=== PATIENT | male | born 1950 | race Two or more races ===

== ENCOUNTER 2024-11-18 17:16 | Inpatient (IN) | payer OTHER ==
[~2024-11-18] VITALS: Ht 182.9 cm; Wt 115.7 kg
[~2024-11-18 17:16] MED LIST: CARDIZEM120 MG; MUCINEX DM1 TAB.SR .; PLAVIX75 MG; PREDNISONE10 MG
[2024-11-18] MEDS ORDERED: ELIQUIS2.5 MG (17:26)
[2024-11-18] MEDS ORDERED: LASIX20 MG (17:26)
--- NOTE | 2024-11-18 17:27 | NUR ---
SE RECIBE PTE LETARGICO EN AMBULANCIA ACOMPANADO DE FAMILIAR LA CUAL REFIERE TRAER A PTE POR DIFICULTAD RESPIRATORIA Y RETENCION DE LIQUIDOS DESDE HACE 3 ARCHIBALD. SE MIDEN S/V A PTE Y SE REALIZA EKG. PTE SE OBSERVA CON EDEMA EN EXTREMIDADES INFERIORES. PTE CON CN A 3 LTS COLOCADA Y H/L EN BRAZO LT MENG DE EDEMA COLOCADO POR PERSONAL PARAMEDICO. PTE SE UBICA EN UBICA EN UNIDAD DE CHEST PAIN.
--- NOTE | 2024-11-18 18:17 | NUR ---
PTE ALERTA Y ACTIVO EN CAMA BAJA Y BARANDAS ELEVADAS POR SEGURIDAD. SE CANALIZA EN BRAZO DERECHO CON 2 H/L, SE LE ERIK MUESTRAS DE PAMELA CRISTINA PARTE DE PROTOCOLO DE DOLOR DE PECHO. SE CONECTA PTE A MONITOR CARDIACO Y OXYMETRIA DE PULSO. ABDOMEN RETRAIBLE AL TACTO. PTE ORINANDO ESPONTANEO. EXTREMIDADES INFERIOIRES LIBRES DE SAMRA AY ERITEMA.
[2024-11-18 18:48] LABS: ALBUMIN 3.7 gm/dL (3.4-5.0); BILIRUBIN TOTAL 0.68 mg/dL (0.3-1.2); CALCIUM 8.8 mg/dL (8.5-10.1); CREATININE SERUM 1.02 mg/dL (0.70-1.30); GFR 71.01; GLOBULINA 3.4 G/DL (2.4-3.5); POTASSIUM 5.07 mEq/L (3.5-5.1); TOTAL PROTEIN 7.1 gm/dL (6.4-8.2)
[2024-11-18 18:57] LABS: HEMATOCRIT 37.7 % (39.0-48.0); HEMOGLOBIN 11.5 g/dL (13-16.00); MEAN CELL VOLUME 80.8 fL (80.0-100.00); MEAN CORPUSCULAR HEMOGLOBIN 24.6 pg (27.00-32.0); MEAN CORPUSCULAR HGB CONC 30.5 g/dl (32.0-36.0); PLATELET COUNT 188 K/uL (150-450); RED BLOOD COUNT 4.67 M/uL (4.00-6.00)
[2024-11-18 18:57] LABS: BILIRUBIN,CONJUGATED 0.2 mg/dL (0.0-0.2); BILIRUBIN,UNCONJUGATED 0.48 mg/dL (0.0-0.6)
[2024-11-18 18:58] LABS: RED CELL DISTRIBUTION WIDTH 19.6 % (11.5-14.5)
[2024-11-18 19:09] LABS: ABG PO2 115.5 mmHg (80-100); BASE EXCESS 4.6 mmol/l; BICARBONATE 36.9 mmol/l (23-25); SaO2 97.1 %
[2024-11-18 19:10] LABS: ABG PH 7.185 (7.35-7.45); allen test SATISFACTORY; o2 36 %; puncture site RADIAL LEFT
[2024-11-18] MEDS ORDERED: FUROsemide 20 MG/2 ML VIAL IV SCH (20:58)
[2024-11-18] MEDS ORDERED: NITROGLYCERIN IN 5 % DEXTROSE 250 ML IV SCH (21:00)
[2024-11-18] MEDS ORDERED: ACETAMINOPHEN 500 MG GEL..CAP PO PRN (21:00)
[2024-11-18] MEDS ORDERED: ENOXAPARIN SODIUM 100 MG/ML SYRINGE SUBCUTANEO SCH (21:00)
[2024-11-18] MEDS ORDERED: AMIODARONE HCL 50 MG/ML AMPUL IV ONE ×2 (21:00→22:07)
[2024-11-18] MEDS ORDERED: FUROsemide 20 MG/2 ML VIAL ONE (22:08)
[2024-11-18] MEDS ORDERED: AMIODARONE IN DEXTROSE,ISO-OSM 360 MG/200 ML IV.SOLN IV ONE (22:08)
[2024-11-18] MEDS ORDERED: NITROGLYCERIN IN 5 % DEXTROSE 50 MG/250 ML BOTTLE IV ONE (22:08)
[2024-11-18 22:13] LABS: ABG PH 7.196 (7.35-7.45); ABG PO2 86.4 mmHg (80-100); BASE EXCESS 4.4 mmol/l; BICARBONATE 36.3 mmol/l (23-25); SaO2 93.7 %; Tco2 39.3 mmol/l; allen test SATISFACTORY; o2 35 %; puncture site RADIAL LEFT
[2024-11-18] MEDS ORDERED: MIDAZOLAM HCL 50 MG in 0.9 % SODIUM CHLORIDE 50 ML IV SCH (22:30)
[2024-11-18 22:51] LABS: ABG PH 7.435 (7.35-7.45); BASE EXCESS 6.3 mmol/l; SaO2 99.3 %
[2024-11-18 22:52] LABS: ABG pCO2 48.4 mmHg (35-45); BICARBONATE 31.8 mmol/l (23-25); Tco2 33.3 mmol/l; allen test SATISFACTORY; o2 50 %; puncture site RADIAL LEFT
[2024-11-18 23:16] LABS: URINE APPEARANCE Clear; URINE BILIRRUBIN Negative (NEGATIVE); URINE BLOOD Negative; URINE COLOR Yellow; URINE GLUCOSE Negative (NEGATIVE); URINE KETONE Negative (NEGATIVE); URINE LEUKOCYTE Negative; URINE NITRATE Negative; URINE PROTEIN 30 (NEGATIVE)
[2024-11-18 23:20] LABS: URINE BACTERIA 23.2 uL (0.0-1933); URINE CAST 1.76 uL (0.0-1.40); URINE EPITHELIAL CELLS 9.3 uL (0.0-38.8); URINE RBC 4.2 uL (0.0-20.8); URINE WBC 13.2 uL (0.0-23.2)
[2024-11-19] VITALS (16 sets, daily range): BP systolic 113–177; BP diastolic 58–92; O2SAT 94–100
[2024-11-19] MEDS ORDERED: IPRATROPIUM BROMIDE 0.5 MG/2.5 ML AMPUL.NEB IH SCH (01:00)
[2024-11-19] MEDS ORDERED: NITROGLYCERIN IN 5 % DEXTROSE 250 ML IV SCH (07:15)
[2024-11-19 07:36] LABS: D DIMER 1.16 MG/L; PARTIAL THROMBOPLASTIN TIME 22.3 SECONDS (22.0-34.0)
[2024-11-19 07:43] LABS: INR 1.6
[2024-11-19 08:23] LABS: CHOL HDL RATIO 2.8 (0-5.0); TSH 0.579 uIU/mL (0.358-3.74)
[2024-11-19 08:25] LABS: PROTHROMBIN TIME 16.8 SECONDS (9.0-11.5)
[2024-11-19] MEDS ORDERED: FAMOTIDINE/PF 20 MG in 0.9 % SODIUM CHLORIDE 8 ML IV PUSH SCH (09:00)
[2024-11-19] MEDS ORDERED: PANTOPRAZOLE SODIUM 40 MG/VIAL VIAL IV PUSH SCH (11:19)
[2024-11-19] MEDS ORDERED: 0.9 % SODIUM CHLORIDE 500 ML IV ONE (11:30)
[2024-11-19] MEDS ORDERED: POLYVINYL ALCOHOL 15 ML DROPS OP SCH (12:36)
[2024-11-19] MEDS ORDERED: CHLORHEXIDINE GLUCONATE 15ML BRUSH KIT MM SCH (12:36)
[2024-11-19] MEDS ORDERED: PROPOFOL 100 ML IV SCH (12:45)
[2024-11-19] MEDS ORDERED: LIDOCAINE HCL 2% JELLY 6 ML SYRINGE MM ONE (13:50)
[2024-11-19 16:19] LABS: ABG PH 7.555 (7.35-7.45); ABG PO2 62.4 mmHg (80-100); ABG pCO2 37.7 mmHg (35-45); BASE EXCESS 9.7 mmol/l; BICARBONATE 32.6 mmol/l (23-25); SaO2 95.1 %; Tco2 33.7 mmol/l
[2024-11-19 16:21] LABS: allen test SATISFACTORY; o2 50 %; puncture site RADIAL RIGHT
[2024-11-19] MEDS ORDERED: FUROsemide 20 MG/2 ML VIAL IV SCH (21:00)
[2024-11-20] VITALS (12 sets, daily range): BP systolic 96–141; BP diastolic 48–95; O2SAT 96–100
[2024-11-20] MEDS ORDERED: FUROsemide 20 MG/2 ML VIAL IV SCH (09:00)
[2024-11-20] MEDS ORDERED: CARVEDILOL 3.125 MG TABLET PO SCH (09:00)
[2024-11-20] MEDS ORDERED: BUDESONIDE 0.5 MG/2 ML AMPUL.NEB IH SCH (09:00)
[2024-11-20] MEDS ORDERED: APIXABAN 5 MG TABLET PO SCH (09:00)
[2024-11-20] MEDS ORDERED: PANTOPRAZOLE SODIUM 40 MG/VIAL VIAL IV PUSH SCH (09:00)
[2024-11-20 10:34] LABS: HEMATOCRIT 33.6 % (39.0-48.0); HEMOGLOBIN 10.7 g/dL (13-16.00); MEAN CORPUSCULAR HEMOGLOBIN 24.3 pg (27.00-32.0); MEAN CORPUSCULAR HGB CONC 31.9 g/dl (32.0-36.0); RED BLOOD COUNT 4.42 M/uL (4.00-6.00); RED CELL DISTRIBUTION WIDTH 19.5 % (11.5-14.5)
[2024-11-20 11:00] LABS: ALBUMIN 2.9 gm/dL (3.4-5.0); BILIRUBIN TOTAL 1.33 mg/dL (0.3-1.2); CALCIUM 8.2 mg/dL (8.5-10.1); CREATININE SERUM 0.98 mg/dL (0.70-1.30); GFR 74.36; GLOBULINA 2.6 G/DL (2.4-3.5); POTASSIUM 3.41 mEq/L (3.5-5.1); TOTAL PROTEIN 5.5 gm/dL (6.4-8.2)
[2024-11-20] MEDS ORDERED: CHLORHEXIDINE GLUCONATE 120 ML BOTTLE TOP ONE (11:18)
[2024-11-20 12:18] LABS: PLATELET COUNT 53 K/uL (150-450)
[2024-11-20 15:19] LABS: ABG PH 7.494 (7.35-7.45); ABG PO2 150.6 mmHg (80-100); ABG pCO2 44.8 mmHg (35-45); BASE EXCESS 9.2 mmol/l; SaO2 99.5 %
[2024-11-20 15:20] LABS: BICARBONATE 33.7 mmol/l (23-25)
[2024-11-20 15:23] LABS: allen test SATISFACTORY; o2 35 %; puncture site RADIAL RIGHT
[2024-11-21 03:59] VITALS: BP 121/59; O2SAT 97
[2024-11-21 06:57] VITALS: BP 132/72; O2SAT 97
[2024-11-21 12:00] VITALS: BP 124/67; O2SAT 100
[2024-11-21 12:56] LABS: CALCIUM 8.2 mg/dL (8.5-10.1); CREATININE SERUM 0.97 mg/dL (0.70-1.30); GFR 75.25; POTASSIUM 3.94 mEq/L (3.5-5.1); PROSTATIC SPECIFIC ANTIGEN 2.26 NG/ML (0.010-4.00)
[2024-11-21] MEDS ORDERED: RACEPINEPHRINE HCL 0.5 ML AMPUL IH ONE ×2 (14:45→15:00)
[2024-11-21 15:19] VITALS: BP 134/75; O2SAT 100
[2024-11-21 16:01] LABS: ABG PH 7.528 (7.35-7.45); ABG PO2 80.9 mmHg (80-100); ABG pCO2 38.3 mmHg (35-45)
[2024-11-21 16:02] LABS: BICARBONATE 31.2 mmol/l (23-25); SaO2 97.4 %; Tco2 32.3 mmol/l
[2024-11-21 16:03] LABS: allen test SATISFACTORY; o2 35 %; puncture site RADIAL RIGHT
[2024-11-21 16:05] LABS: ABG PH 7.467 (7.35-7.45); ABG PO2 119.1 mmHg (80-100); ABG pCO2 44.2 mmHg (35-45); BASE EXCESS 6.6 mmol/l; BICARBONATE 31.2 mmol/l (23-25); SaO2 98.9 %; Tco2 32.5 mmol/l
[2024-11-21 16:07] LABS: allen test SATISFACTORY; o2 35 %; puncture site RADIAL RIGHT
[2024-11-21 20:00] VITALS: BP 129/83; O2SAT 99
[2024-11-21 23:27] VITALS: BP 109/64; O2SAT 100
[2024-11-22 04:00] VITALS: BP 113/58; O2SAT 97
[2024-11-22 07:19] VITALS: BP 127/62; O2SAT 100
[2024-11-22 10:19] LABS: BASE EXCESS 6.7 mmol/l; BICARBONATE 34.2 mmol/l (23-25); SaO2 98.4 %
[2024-11-22 12:00] VITALS: BP 126/71; O2SAT 98
[2024-11-22 14:58] VITALS: BP 113/56; O2SAT 100
[2024-11-22 15:17] LABS: ABG pCO2 60.4 mmHg (35-45); allen test SATISFACTORY; o2 50 %; puncture site RADIAL RIGHT
[2024-11-22 18:36] LABS: TP PLEURAL FLUID 2.2 g/dl
[2024-11-22 18:41] LABS: PLEURAL FLUID COLOR XANTHOCROMIC
[2024-11-22 18:44] LABS: PLEURAL FLUID APPEARANCE HAZY
[2024-11-22 19:07] LABS: MONONUCLEAR 30 %; POLYMORPHONUCLEAR 70 %
[2024-11-22 20:00] VITALS: BP 103/57; O2SAT 100
[2024-11-22] MEDS ORDERED: POTASSIUM CHLORIDE IN WATER 40 MEQ/100 ML PIGGYBAG IV ONE (21:45)
[2024-11-22 23:19] VITALS: BP 102/55; O2SAT 98
[2024-11-23] VITALS (7 sets, daily range): BP systolic 106–124; BP diastolic 52–76; O2SAT 93–100
[2024-11-23 08:36] LABS: ALBUMIN 2.6 gm/dL (3.4-5.0); CALCIUM 8.2 mg/dL (8.5-10.1); CREATININE SERUM 0.8 mg/dL (0.70-1.30); GFR 93.99; PHOSPHOROUS 3.4 mg/dL (2.5-4.9); POTASSIUM 3.8 mEq/L (3.5-5.1)
[2024-11-23] MEDS ORDERED: ALPRAzolam 1 MG TABLET PO ONE (20:15)
[2024-11-23] MEDS ORDERED: DIPHENHYDRAMINE HCL 25 MG CAPSULE PO ONE (21:45)
[2024-11-24 04:09] VITALS: BP 102/72; O2SAT 98
[2024-11-24 08:19] VITALS: BP 101/58; O2SAT 100
[2024-11-24 08:49] LABS: ABG PH 7.324 (7.35-7.45); ABG PO2 144.7 mmHg (80-100); BASE EXCESS 9.7 mmol/l; BICARBONATE 39.3 mmol/l (23-25); SaO2 99.1 %; Tco2 41.7 mmol/l
[2024-11-24 10:13] LABS: ABG pCO2 77.4 mmHg (35-45); allen test SATISFACTORY; o2 50 %; puncture site RADIAL LEFT
[2024-11-24 11:57] VITALS: BP 152/67; O2SAT 100
[2024-11-24] MEDS ORDERED: PRAMOXINE HCL/CALAMINE 180 ML BOTTLE TOP SCH (13:00)
[2024-11-24 13:31] LABS: HEMATOCRIT 36.4 % (39.0-48.0); HEMOGLOBIN 11.1 g/dL (13-16.00); MEAN CELL VOLUME 79.1 fL (80.0-100.00); MEAN CORPUSCULAR HEMOGLOBIN 24.2 pg (27.00-32.0); MEAN CORPUSCULAR HGB CONC 30.6 g/dl (32.0-36.0); RED BLOOD COUNT 4.61 M/uL (4.00-6.00); RED CELL DISTRIBUTION WIDTH 18.4 % (11.5-14.5)
[2024-11-24 14:45] LABS: PLATELET COUNT 67 K/uL (150-450)
[2024-11-24 16:00] VITALS: BP 111/59; O2SAT 100
[2024-11-24 20:00] VITALS: BP 125/58; O2SAT 98
[2024-11-24 22:53] VITALS: BP 106/47; O2SAT 98
[2024-11-25 04:38] VITALS: BP 111/59; O2SAT 98
[2024-11-25 06:27] LABS: HEMATOCRIT 32.8 % (39.0-48.0); HEMOGLOBIN 10.2 g/dL (13-16.00); MEAN CELL VOLUME 78.2 fL (80.0-100.00); MEAN CORPUSCULAR HEMOGLOBIN 24.4 pg (27.00-32.0); MEAN CORPUSCULAR HGB CONC 31.2 g/dl (32.0-36.0); RED BLOOD COUNT 4.19 M/uL (4.00-6.00); RED CELL DISTRIBUTION WIDTH 18.4 % (11.5-14.5)
[2024-11-25 06:37] LABS: PLATELET COUNT 53 K/uL (150-450)
[2024-11-25 07:04] LABS: ALBUMIN 2.3 gm/dL (3.4-5.0); BILIRUBIN TOTAL 0.95 mg/dL (0.3-1.2); CALCIUM 8.2 mg/dL (8.5-10.1); CREATININE SERUM 0.74 mg/dL (0.70-1.30); GFR 102.83; GLOBULINA 2.8 G/DL (2.4-3.5); POTASSIUM 4.06 mEq/L (3.5-5.1); TOTAL PROTEIN 5.1 gm/dL (6.4-8.2)
[2024-11-25 07:14] LABS: PHOSPHOROUS 1.9 mg/dL (2.5-4.9)
[2024-11-25 07:36] VITALS: BP 123/63; O2SAT 99
[2024-11-25] MEDS ORDERED: MAGNESIUM SULFATE IN WATER 50 ML IV SCH (08:10)
[2024-11-25] MEDS ORDERED: PANTOPRAZOLE SODIUM 40 MG TABLET.DR PO SCH (09:00)
[2024-11-25 09:15] LABS: ABG PH 7.402 (7.35-7.45); ABG PO2 89.2 mmHg (80-100); BASE EXCESS 13.5 mmol/l; BICARBONATE 41.8 mmol/l (23-25); SaO2 97.2 %; Tco2 43.9 mmol/l
[2024-11-25 09:26] LABS: ABG pCO2 68.7 mmHg (35-45); allen test SATISFACTORY; o2 32 %; puncture site RADIAL RIGHT
[2024-11-25 12:00] VITALS: BP 116/67; O2SAT 99
[2024-11-25] MEDS ORDERED: POTASSIUM PHOS,M-BASIC-D-BASIC 3 MM/ML VIAL IV SCH (12:00)
[2024-11-25] MEDS ORDERED: POTASSIUM PHOS,M-BASIC-D-BASIC 18 MM in 0.9 % SODIUM CHLORIDE 500 ML IV ONE ×2 (14:00→16:00)
[2024-11-25 15:32] VITALS: BP 102/48; O2SAT 100
[2024-11-25 16:08] LABS: PROTEIN C ANTIGEN 66 % (60-150)
[2024-11-25 20:00] VITALS: BP 105/82; O2SAT 99
[2024-11-25 20:08] LABS: PROTEIN C ACTIVITY 73 % (73-180); dRVVT 79.6 sec (0.0-47.0); interp Comment: (.); ptt-la 55.5 sec (0.0-43.5)
[2024-11-25 23:00] VITALS: BP 110/58; O2SAT 99
[2024-11-26 04:00] VITALS: BP 108/54; O2SAT 99
[2024-11-26 07:13] VITALS: BP 112/50; O2SAT 96
[2024-11-26] MEDS ORDERED: 0.9 % SODIUM CHLORIDE 500 ML IV ONE (09:00)
[2024-11-26 15:10] VITALS: BP 127/69; O2SAT 98
[2024-11-26 16:09] VITALS: O2SAT 99
[2024-11-26 19:34] VITALS: O2SAT 97
[2024-11-26] MEDS ORDERED: FUROsemide 20 MG/2 ML VIAL IV SCH (20:13)
[2024-11-27] VITALS (7 sets, daily range): BP systolic 112–166; BP diastolic 62–87; O2SAT 89–98
[2024-11-27] MEDS ORDERED: IPRATROPIUM BROMIDE 0.5 MG/2.5 ML AMPUL.NEB IH SCH
[2024-11-27] MEDS ORDERED: METHYLPREDNISOLONE SOD SUCC 125 MG VIAL IV STA (07:51)
[2024-11-27] MEDS ORDERED: GUAIFENESIN 200 MG/10 ML BLIST.PACK PO SCH (08:00)
[2024-11-27] MEDS ORDERED: METOPROLOL SUCCINATE 50 MG TAB.SR.24H PO SCH (09:00)
[2024-11-27] MEDS ORDERED: BUMETANIDE 1 MG TABLET PO SCH (09:00)
[2024-11-27] MEDS ORDERED: DIATRIZOATE MEGLUMINE, SODIUM 30 ML BOTTLE PO NR (09:00)
[2024-11-27] MEDS ORDERED: LOSARTAN POTASSIUM 25 MG TABLET PO SCH (09:00)
[2024-11-27] MEDS ORDERED: SOD FERRIC GLUC COMPLX/SUCROSE 62.5 MG in 0.9 % SODIUM CHLORIDE 50 ML IV SCH (09:00)
[2024-11-27 13:25] LABS: HEMATOCRIT 35.5 % (39.0-48.0); HEMOGLOBIN 10.9 g/dL (13-16.00); MEAN CELL VOLUME 78.3 fL (80.0-100.00); MEAN CORPUSCULAR HGB CONC 30.6 g/dl (32.0-36.0); RED BLOOD COUNT 4.53 M/uL (4.00-6.00); RED CELL DISTRIBUTION WIDTH 18.3 % (11.5-14.5)
[2024-11-27 13:31] LABS: PLATELET COUNT 38 K/uL (150-450)
[2024-11-27 14:02] LABS: ALBUMIN 2.7 gm/dL (3.4-5.0); BILIRUBIN TOTAL 0.93 mg/dL (0.3-1.2); CALCIUM 8.7 mg/dL (8.5-10.1); CREATININE SERUM 0.65 mg/dL (0.70-1.30); GFR 119.43; GLOBULINA 3.7 G/DL (2.4-3.5); POTASSIUM 4.41 mEq/L (3.5-5.1); TOTAL PROTEIN 6.4 gm/dL (6.4-8.2)
[2024-11-27 14:13] LABS: FOLIC ACID 14.61 ng/ml (4.78-20)
[2024-11-27 14:44] LABS: ob POSITIVE (NEGATIVE)
[2024-11-27] MEDS ORDERED: METHYLPREDNISOLONE SOD SUCC 40 MG VIAL IV SCH (21:00)
[2024-11-27 22:47] LABS: ABG PH 7.368 (7.35-7.45)
[2024-11-27 22:48] LABS: BASE EXCESS 10.8 mmol/l; BICARBONATE 39.3 mmol/l (23-25); SaO2 73.6 %; Tco2 41.5 mmol/l; o2 21 %
[2024-11-27 22:49] LABS: ABG PO2 39.2 mmHg (80-100); allen test SATISFACTORY; puncture site RADIAL RIGHT
[2024-11-28] VITALS (9 sets, daily range): BP systolic 122–142; BP diastolic 70–80; O2SAT 95–100
[2024-11-28] MEDS ORDERED: 0.9 % SODIUM CHLORIDE 1,000 ML IV SCH (09:30)
[2024-11-28] MEDS ORDERED: PANTOPRAZOLE SODIUM 80 MG in 0.9 % SODIUM CHLORIDE 100 ML IV SCH (09:56)
[2024-11-28] MEDS ORDERED: ALBUMIN HUMAN 100 ML VIAL IV SCH (09:57)
[2024-11-28] MEDS ORDERED: FUROsemide 20 MG/2 ML VIAL IV SCH (09:59)
[2024-11-28] MEDS ORDERED: ACETAZOLAMIDE 250 MG TABLET PO SCH (10:06)
[2024-11-28 11:53] LABS: ABG PH 7.394 (7.35-7.45)
[2024-11-28 11:54] LABS: ABG pCO2 70.5 mmHg (35-45); BASE EXCESS 13.5 mmol/l; BICARBONATE 42.1 mmol/l (23-25); SaO2 97.9 %; Tco2 44.3 mmol/l
[2024-11-28 11:55] LABS: allen test SATISFACTORY; o2 40 %; puncture site RADIAL RIGHT
[2024-11-29] VITALS (10 sets, daily range): BP systolic 139–165; BP diastolic 64–74; O2SAT 98–100
[2024-11-29 11:31] LABS: ABG PH 7.448 (7.35-7.45)
[2024-11-29 11:32] LABS: ABG PO2 156.1 mmHg (80-100); ABG pCO2 60.1 mmHg (35-45); BASE EXCESS 13.6 mmol/l; BICARBONATE 40.6 mmol/l (23-25); SaO2 99.5 %; Tco2 42.5 mmol/l; allen test SATISFACTORY; o2 40 %; puncture site RADIAL LEFT
[2024-11-29 14:25] LABS: HEMATOCRIT 35.5 % (39.0-48.0); HEMOGLOBIN 10.9 g/dL (13-16.00); MEAN CELL VOLUME 78.1 fL (80.0-100.00); MEAN CORPUSCULAR HEMOGLOBIN 24.1 pg (27.00-32.0); MEAN CORPUSCULAR HGB CONC 30.8 g/dl (32.0-36.0); PLATELET COUNT 143 K/uL (150-450); RED BLOOD COUNT 4.54 M/uL (4.00-6.00); RED CELL DISTRIBUTION WIDTH 18.8 % (11.5-14.5)
[2024-11-29 15:01] LABS: ALBUMIN 3.5 gm/dL (3.4-5.0); BILIRUBIN TOTAL 0.99 mg/dL (0.3-1.2); CALCIUM 9.2 mg/dL (8.5-10.1); CREATININE SERUM 0.93 mg/dL (0.70-1.30); GLOBULINA 3.4 G/DL (2.4-3.5); PHOSPHOROUS 4.2 mg/dL (2.5-4.9); POTASSIUM 4.24 mEq/L (3.5-5.1); TOTAL PROTEIN 6.9 gm/dL (6.4-8.2)
[2024-11-29] MEDS ORDERED: ACETAZOLAMIDE SODIUM 500 MG VIAL IV SCH (21:00)
[2024-11-30 04:00] VITALS: BP 115/42; O2SAT 100
[2024-11-30 07:04] VITALS: BP 140/60; O2SAT 98
[2024-11-30 09:05] LABS: ABG PH 7.438 (7.35-7.45); ABG PO2 151.7 mmHg (80-100); BASE EXCESS 10.5 mmol/l; SaO2 99.4 %; Tco2 38.7 mmol/l
[2024-11-30 12:00] VITALS: BP 132/69; O2SAT 99
[2024-11-30] MEDS ORDERED: hydrALAZINE HCL 20 MG VIAL IV PRN (13:30)
[2024-11-30] MEDS ORDERED: METOPROLOL TARTRATE 5MG/5ML AMPUL IV SCH (14:00)
[2024-11-30] MEDS ORDERED: ENALAPRILAT DIHYDRATE 1.25 MG/ML VIAL IV SCH (14:00)
[2024-11-30] MEDS ORDERED: BUMETANIDE 2.5 MG/10 ML VIAL IV NR (14:30)
[2024-11-30 15:30] LABS: allen test SATISFACTORY; o2 40 %; puncture site RADIAL RIGHT
[2024-11-30 15:47] VITALS: BP 142/67; O2SAT 97
[2024-11-30 18:44] LABS: ABG PH 7.432 (7.35-7.45); ABG PO2 74.1 mmHg (80-100); ABG pCO2 52.1 mmHg (35-45); SaO2 95.5 %; Tco2 35.6 mmol/l; allen test SATISFACTORY; o2 40 %; puncture site RADIAL RIGHT
[2024-11-30 20:13] VITALS: BP 118/60; O2SAT 97
[2024-11-30] MEDS ORDERED: ACETAZOLAMIDE SODIUM 500 MG VIAL IV SCH (21:00)
[2024-11-30 23:06] VITALS: BP 125/72; O2SAT 98
[2024-12-01 04:00] VITALS: BP 110/58; O2SAT 97
[2024-12-01 07:15] VITALS: BP 126/60; O2SAT 95
[2024-12-01] MEDS ORDERED: BUMETANIDE 2.5 MG/10 ML VIAL IV SCH (09:00)
[2024-12-01 12:06] VITALS: BP 111/64; O2SAT 96
[2024-12-01 15:50] VITALS: BP 111/64; O2SAT 97
[2024-12-01 20:22] VITALS: BP 129/69; O2SAT 99
[2024-12-01 21:26] LABS: ABG PH 7.461 (7.35-7.45); ABG PO2 158.9 mmHg (80-100); ABG pCO2 44.6 mmHg (35-45); BASE EXCESS 6.3 mmol/l; SaO2 99.5 %; Tco2 32.4 mmol/l; allen test SATISFACTORY; o2 40 %; puncture site RADIAL LEFT
[2024-12-01 23:14] VITALS: BP 87/54; O2SAT 97
[2024-12-02 04:00] VITALS: BP 142/76; O2SAT 100
[2024-12-02 06:38] LABS: HEMOGLOBIN 11.1 g/dL (13-16.00); MEAN CELL VOLUME 77.9 fL (80.0-100.00); MEAN CORPUSCULAR HEMOGLOBIN 24.1 pg (27.00-32.0); MEAN CORPUSCULAR HGB CONC 30.9 g/dl (32.0-36.0); RED BLOOD COUNT 4.62 M/uL (4.00-6.00); RED CELL DISTRIBUTION WIDTH 19.3 % (11.5-14.5)
[2024-12-02 06:42] LABS: PLATELET COUNT 55 K/uL (150-450)
[2024-12-02 07:04] VITALS: BP 123/60; O2SAT 100
[2024-12-02 07:14] LABS: ALBUMIN 2.9 gm/dL (3.4-5.0); BILIRUBIN TOTAL 1.03 mg/dL (0.3-1.2); CALCIUM 8.8 mg/dL (8.5-10.1); CREATININE SERUM 0.7 mg/dL (0.70-1.30); GFR 109.64; GLOBULINA 3.3 G/DL (2.4-3.5); MAGNESIUM 2.4 mg/dL (1.8-2.4); PHOSPHOROUS 2.8 mg/dL (2.5-4.9); POTASSIUM 3.54 mEq/L (3.5-5.1); TOTAL PROTEIN 6.2 gm/dL (6.4-8.2)
[2024-12-02] MEDS ORDERED: FUROsemide 20 MG/2 ML VIAL IV SCH (09:00)
[2024-12-02] MEDS ORDERED: METOPROLOL SUCCINATE 50 MG TAB.SR.24H PO SCH (09:00)
[2024-12-02] MEDS ORDERED: LOSARTAN POTASSIUM 25 MG TABLET PO SCH (09:00)
[2024-12-02 11:01] LABS: ABG PH 7.432 (7.35-7.45); ABG PO2 66.3 mmHg (80-100); ABG pCO2 48.2 mmHg (35-45); BICARBONATE 31.4 mmol/l (23-25); SaO2 93.8 %; Tco2 32.9 mmol/l; allen test SATISFACTORY; o2 50 %; puncture site RADIAL RIGHT
[2024-12-02 11:34] LABS: ABG PH 7.417 (7.35-7.45); ABG PO2 115.1 mmHg (80-100); ABG pCO2 48.2 mmHg (35-45); BASE EXCESS 4.8 mmol/l; BICARBONATE 30.3 mmol/l (23-25); SaO2 98.6 %; Tco2 31.8 mmol/l; o2 36 %
[2024-12-02 11:35] LABS: allen test SATISFACTORY; puncture site RADIAL LEFT
[2024-12-02 11:40] VITALS: BP 108/55; O2SAT 100
[2024-12-02 15:24] VITALS: BP 80/62; O2SAT 100
[2024-12-02 21:14] VITALS: BP 116/63; O2SAT 100
[2024-12-02 23:06] VITALS: BP 104/68; O2SAT 99
[2024-12-03 04:00] VITALS: BP 105/63; O2SAT 97
[2024-12-03 07:17] VITALS: BP 101/62; O2SAT 97
[2024-12-03 11:14] LABS: HEMATOCRIT 35.8 % (39.0-48.0); HEMOGLOBIN 11.5 g/dL (13-16.00); MEAN CELL VOLUME 77.2 fL (80.0-100.00); MEAN CORPUSCULAR HEMOGLOBIN 24.9 pg (27.00-32.0); MEAN CORPUSCULAR HGB CONC 32.2 g/dl (32.0-36.0); RED BLOOD COUNT 4.64 M/uL (4.00-6.00); RED CELL DISTRIBUTION WIDTH 19.4 % (11.5-14.5)
[2024-12-03 11:33] LABS: ALBUMIN 2.7 gm/dL (3.4-5.0); BILIRUBIN TOTAL 0.77 mg/dL (0.3-1.2); CALCIUM 8.5 mg/dL (8.5-10.1); CREATININE SERUM 0.74 mg/dL (0.70-1.30); GFR 102.83; GLOBULINA 3.5 G/DL (2.4-3.5); POTASSIUM 4.14 mEq/L (3.5-5.1); TOTAL PROTEIN 6.2 gm/dL (6.4-8.2)
[2024-12-03 12:10] VITALS: BP 107/60; O2SAT 100
[2024-12-03 12:14] LABS: PLATELET COUNT 21 K/uL (150-450)
[2024-12-03 15:42] VITALS: BP 114/58; O2SAT 100
[2024-12-03] MEDS ORDERED: CEFTAROLINE FOSAMIL ACETATE 600 MG VIAL IV SCH (21:00)
[2024-12-03 21:04] VITALS: BP 127/54; O2SAT 95
[2024-12-04] VITALS: BP 116/57; O2SAT 100
[2024-12-04 03:54] VITALS: BP 119/66; O2SAT 100
[2024-12-04 07:15] VITALS: BP 116/62; O2SAT 100
[2024-12-04] MEDS ORDERED: BUDESONIDE 0.5 MG/2 ML AMPUL.NEB IH SCH (09:00)
[2024-12-04] MEDS ORDERED: APIXABAN 5 MG TABLET PO SCH (09:00)
[2024-12-04] MEDS ORDERED: FUROsemide 20 MG TABLET PO SCH (09:00)
[2024-12-04 12:00] VITALS: BP 126/66; O2SAT 100
[2024-12-04 14:20] VITALS: BP 119/74; O2SAT 100
[2024-12-04 16:00] VITALS: BP 110/55; O2SAT 99
[2024-12-05 02:05] VITALS: BP 126/75; O2SAT 98
[2024-12-05 12:08] LABS: HEMATOCRIT 35.1 % (39.0-48.0); HEMOGLOBIN 11.2 g/dL (13-16.00); MEAN CELL VOLUME 76.9 fL (80.0-100.00); MEAN CORPUSCULAR HEMOGLOBIN 24.6 pg (27.00-32.0); RED BLOOD COUNT 4.57 M/uL (4.00-6.00)
[2024-12-05 12:22] LABS: PLATELET COUNT 99 K/uL (150-450)
[2024-12-05 14:11] LABS: ABG PH 7.432 (7.35-7.45); ABG PO2 77.7 mmHg (80-100); ABG pCO2 51.5 mmHg (35-45); BASE EXCESS 7.6 mmol/l; BICARBONATE 33.5 mmol/l (23-25); Tco2 35.1 mmol/l
[2024-12-05 14:16] LABS: allen test SATISFACTORY; o2 32 %; puncture site RADIAL RIGHT
[2024-12-05 19:06] VITALS: BP 107/60; O2SAT 98
[2024-12-05] MEDS ORDERED: PANTOPRAZOLE SODIUM 40 MG TABLET.DR PO SCH (21:00)
[2024-12-06 04:04] VITALS: BP 106/60
[2024-12-06] MEDS ORDERED: FUROsemide 20 MG TABLET PO SCH (09:00)
[2024-12-06] MEDS ORDERED: METOPROLOL SUCCINATE 25 MG TAB.SR.24H PO SCH (09:00)
[2024-12-06] MEDS ORDERED: EMPAGLIFLOZIN 10 MG TABLET PO NR (11:00)
[2024-12-06 16:00] VITALS: BP 117/69; O2SAT 96
[2024-12-06] MEDS ORDERED: LACTOBACILLUS ACIDOPHILUS 1 CAP CAP PO SCH (17:00)
[2024-12-07 01:43] VITALS: BP 99/66; O2SAT 95
[2024-12-07 08:00] VITALS: BP 125/61; O2SAT 99
[2024-12-07] MEDS ORDERED: EMPAGLIFLOZIN 10 MG TABLET PO SCH (09:00)
[2024-12-07] MEDS ORDERED: HYDROCHLOROTHIAZIDE 12.5 MG CAPSULE PO SCH (10:06)
[2024-12-07 10:34] LABS: ABG PH 7.471 (7.35-7.45); ABG PO2 66.1 mmHg (80-100); ABG pCO2 44.6 mmHg (35-45); BASE EXCESS 7.2 mmol/l; BICARBONATE 31.8 mmol/l (23-25); SaO2 94.5 %; Tco2 33.2 mmol/l
[2024-12-07 10:42] LABS: allen test SATISFACTORY; o2 21 %; puncture site RADIAL RIGHT
[2024-12-07 16:00] VITALS: BP 121/72; O2SAT 99
[2024-12-07 17:45] LABS: HEMATOCRIT 34.5 % (39.0-48.0); HEMOGLOBIN 10.9 g/dL (13-16.00); MEAN CELL VOLUME 78.3 fL (80.0-100.00); MEAN CORPUSCULAR HEMOGLOBIN 24.8 pg (27.00-32.0); MEAN CORPUSCULAR HGB CONC 31.7 g/dl (32.0-36.0); PLATELET COUNT 149 K/uL (150-450); RED BLOOD COUNT 4.41 M/uL (4.00-6.00); RED CELL DISTRIBUTION WIDTH 19.9 % (11.5-14.5)
[2024-12-07 18:22] LABS: ALBUMIN 2.7 gm/dL (3.4-5.0); BILIRUBIN TOTAL 0.55 mg/dL (0.3-1.2); CALCIUM 8.6 mg/dL (8.5-10.1); CREATININE SERUM 0.79 mg/dL (0.70-1.30); GFR 95.36; GLOBULINA 3.2 G/DL (2.4-3.5); POTASSIUM 4.48 mEq/L (3.5-5.1); TOTAL PROTEIN 5.9 gm/dL (6.4-8.2)
[2024-12-08 02:08] VITALS: BP 112/68; O2SAT 94
[2024-12-08 08:00] VITALS: BP 135/81; O2SAT 98
[2024-12-08] MEDS ORDERED: IPRATROPIUM BROMIDE 0.5 MG/2.5 ML AMPUL.NEB IH SCH (13:00)
[2024-12-08 16:00] VITALS: BP 114/68; O2SAT 95
[2024-12-09] VITALS (9 sets, daily range): BP systolic 105–128; BP diastolic 63–71; O2SAT 90–98
[2024-12-10] VITALS: BP 157/81; O2SAT 100; O2SAT 98
[2024-12-10 05:00] VITALS: O2SAT 99
[2024-12-10 08:00] VITALS: BP 133/56
[2024-12-10] MEDS ORDERED: ELIQUIS5 MG PO (08:44)
[2024-12-10] MEDS ORDERED: TOPROL XL25 M1 PO (08:45)
[2024-12-10] MEDS ORDERED: INTESTINEX680 M1 PO (08:45)
[2024-12-10] MEDS ORDERED: TUSSIN MUC100 MG/5 M PO (08:45)
[2024-12-10] MEDS ORDERED: HYDROCHLOROTH12.5 MG PO (08:45)
[2024-12-10] MEDS ORDERED: LOSARTAN POTASS25 MG PO (08:45)
[2024-12-10] MEDS ORDERED: PANTOPRAZOLE SO40 MG PO (08:46)
[2024-12-10] MEDS ORDERED: BUDESONIDE0.5 MG/2 M IH (08:46)
[2024-12-10] MEDS ORDERED: JARDIANCE10 MG PO (08:46)
[2024-12-10] MEDS ORDERED: WIXELA 250-501 EACH IH (08:47)
[2024-12-10] MEDS ORDERED: AVIDOXY100 MG PO (08:48)
[2024-12-10 10:43] VITALS: O2SAT 99
[2024-12-10 14:19] VITALS: O2SAT 96
== END 2024-12-10 15:21 | DRG 207 ==
LOC: ER 17:16 → ICU-2 22:27 → ICU 11-19 18:11 → MEDI 11-26 12:07 → ICU 11-29 13:16 → SURG 12-04 11:35 → O/R 12-05 10:51 → SURG 12-05 10:53
PROVIDERS: Emergency Medicine; General Practice; Internal Medicine; Radiology Vascular & Interventional Radiology; ADMIT Internal Medicine; ATTEND Internal Medicine
PROC: B54DZZZ Ultrasonography of Bilateral Lower Extremity Veins (ICD-10-PCS; 2024-11-18)
PROC: B24BZZZ Ultrasonography of Heart with Aorta (ICD-10-PCS; 2024-11-19)
PROC: BW28ZZZ Computerized Tomography (CT Scan) of Head (ICD-10-PCS; 2024-11-20)
PROC: BW24YZZ Computerized Tomography (CT Scan) of Chest and Abdomen using Other Contrast (ICD-10-PCS; 2024-11-21)
PROC: 0W993ZX Drainage of Right Pleural Cavity, Percutaneous Approach, Diagnostic (ICD-10-PCS; 2024-11-22)
PROC: 5A1955Z Respiratory Ventilation, Greater than 96 Consecutive Hours (ICD-10-PCS; principal; 2024-11-24)
PROC: 0BH17EZ Insertion of Endotracheal Airway into Trachea, Via Natural or Artificial Opening (ICD-10-PCS; 2024-11-24)
PROC: 4A12X4Z Monitoring of Cardiac Electrical Activity, External Approach (ICD-10-PCS; 2024-11-26)
PROC: BW21YZZ Computerized Tomography (CT Scan) of Abdomen and Pelvis using Other Contrast (ICD-10-PCS; 2024-11-27)
PROC: 02HV33Z Insertion of Infusion Device into Superior Vena Cava, Percutaneous Approach (ICD-10-PCS; 2024-11-29)
PROC: BW24ZZZ Computerized Tomography (CT Scan) of Chest and Abdomen (ICD-10-PCS; 2024-11-29)
DX: J96.02 Acute respiratory failure with hypercapnia (principal); T80.211A Bloodstream infection due to central venous catheter, initial encounter; J18.9 Pneumonia, unspecified organism; I50.30 Unspecified diastolic (congestive) heart failure; E66.2 Morbid (severe) obesity with alveolar hypoventilation; R78.81 Bacteremia; J98.6 Disorders of diaphragm; E78.5 Hyperlipidemia, unspecified; I48.91 Unspecified atrial fibrillation; J96.01 Acute respiratory failure with hypoxia; I11.0 Hypertensive heart disease with heart failure; I87.2 Venous insufficiency (chronic) (peripheral); I34.0 Nonrheumatic mitral (valve) insufficiency; I07.1 Rheumatic tricuspid insufficiency; D69.6 Thrombocytopenia, unspecified; G83.89 Other specified paralytic syndromes; J44.9 Chronic obstructive pulmonary disease, unspecified; D64.9 Anemia, unspecified; A49.8 Other bacterial infections of unspecified site; B95.8 Unspecified staphylococcus as the cause of diseases classified elsewhere
CPT/HCPCS: 71275

== ENCOUNTER 2025-04-23 18:13 | Inpatient (IN) | payer OTHER ==
[~2025-04-23] VITALS: Ht 193 cm; Wt 113.4 kg
[~2025-04-23 18:13] MED LIST changes: +AVIDOXY100 MG PO; +BUDESONIDE0.5 MG/2 M IH; +ELIQUIS2.5 MG; +ELIQUIS5 MG PO; +HYDROCHLOROTH12.5 MG PO; +INTESTINEX680 M1 PO; +JARDIANCE10 MG PO; +LASIX20 MG; +LOSARTAN POTASS25 MG PO; +PANTOPRAZOLE SO40 MG PO; +TOPROL XL25 M1 PO; +TUSSIN MUC100 MG/5 M PO; +WIXELA 250-501 EACH IH
[2025-04-23] MEDS ORDERED: 0.9 % SODIUM CHLORIDE 1,000 ML IV STA (18:28)
[2025-04-23] MEDS ORDERED: ELIQUIS5 MG (18:37)
[2025-04-23] MEDS ORDERED: COZAAR50 MG (18:38)
[2025-04-23] MEDS ORDERED: DILTIAZEM 24HR180 MG (18:38)
[2025-04-23 19:04] LABS: BASO % 0.9 % (0.1-1.2); EOS # 0.08 (0.04-0.54); EOS % 1.4 % (0.7-7.0); HEMATOCRIT 36.7 % (40.1-51.0); HEMOGLOBIN 10.9 g/dL (13.7-17.5); LYMPH # 0.84 (1.18-3.74); LYMPH % 14.8 % (19.3-53.1); MEAN CORPUSCULAR HEMOGLOBIN 26.9 pg (25.6-32.2); MONO # 0.86 (0.24-0.82); NEUT # 3.83 (1.56-6.13); NEUT % 67.4 % (34.0-71.1); PLATELET COUNT 196 K/uL (163-369); RED BLOOD COUNT 4.05 M/uL (4.63-6.08); RED CELL DISTRIBUTION WIDTH 16.2 % (11.6-14.4)
[2025-04-23 19:11] LABS: MONO % 15.1 % (4.7-12.5)
[2025-04-23 19:29] LABS: INR 1.4; PARTIAL THROMBOPLASTIN TIME 29.2 SECONDS (22.0-34.0); PROTHROMBIN TIME 14.9 SECONDS (9.0-11.5)
[2025-04-23 19:33] LABS: ALBUMIN 3.5 gm/dL (3.4-5.0); BILIRUBIN TOTAL 0.64 mg/dL (0.3-1.2); CALCIUM 8.8 mg/dL (8.5-10.1); CREATININE SERUM 0.89 mg/dL (0.70-1.30); GFR 82.88; GLOBULINA 3.7 G/DL (2.4-3.5); POTASSIUM 4.89 mEq/L (3.5-5.1); TOTAL PROTEIN 7.2 gm/dL (6.4-8.2)
[2025-04-23 20:45] LABS: COVID-19 AG NEGATIVE (NEGATIVE)
[2025-04-23 20:52] LABS: INFLUENZA A AG NEGATIVE (NEGATIVE); INFLUENZA B AG NEGATIVE (NEGATIVE)
[2025-04-23] MEDS ORDERED: FUROsemide 20 MG/2 ML VIAL IV SCH (21:42)
[2025-04-23] MEDS ORDERED: NITROGLYCERIN IN 5 % DEXTROSE 250 ML IV SCH (21:45)
[2025-04-23] MEDS ORDERED: FUROsemide 40 MG/4 ML VIAL IV SCH (21:48)
[2025-04-23] MEDS ORDERED: ACETAMINOPHEN 500 MG GEL..CAP PO PRN (22:00)
[2025-04-23] MEDS ORDERED: ONDANSETRON HCL 4 MG in 0.9 % SODIUM CHLORIDE 50 ML IV PRN (22:00)
[2025-04-23] MEDS ORDERED: CEFEPIME HCL 2,000 MG in 0.9 % SODIUM CHLORIDE 100 ML IV SCH (22:15)
[2025-04-23] MEDS ORDERED: VANCOMYCIN HCL 1,000 MG VIAL IV SCH (22:15)
[2025-04-23] MEDS ORDERED: CEFEPIME HCL 2,000 MG VIAL ONE (22:30)
[2025-04-23] MEDS ORDERED: FUROsemide 40 MG/4 ML VIAL ONE (22:30)
[2025-04-23] MEDS ORDERED: VANCOMYCIN HCL 1,000 MG VIAL ONE (22:31)
[2025-04-23] MEDS ORDERED: NITROGLYCERIN IN 5 % DEXTROSE 50 MG/250 ML BOTTLE IV ONE (22:38)
[2025-04-23 22:48] LABS: ABG PO2 23.6 mmHg (80-100); ABG pCO2 107.5 mmHg (35-45); SaO2 29.7 %
[2025-04-23 22:49] LABS: BASE EXCESS 8.4 mmol/l; BICARBONATE 41.2 mmol/l (23-25); Tco2 44.5 mmol/l; allen test SATISFACTORY; mode NASAL CANNULA; o2 35 %; puncture site RADIAL LEFT
[2025-04-23 22:50] LABS: ABG PH 7.244 (7.35-7.45)
[2025-04-23 22:50] LABS: ABG PH 7.201 (7.35-7.45)
[2025-04-23 22:52] LABS: ABG PO2 88.5 mmHg (80-100); BASE EXCESS 6.8 mmol/l; BICARBONATE 37.9 mmol/l (23-25); Tco2 40.7 mmol/l; allen test SATISFACTORY; o2 45 %; puncture site BRADIAL LEFT
[2025-04-23 22:53] LABS: mode BPAP
[2025-04-23 22:57] LABS: ABG pCO2 89.7 mmHg (35-45)
[2025-04-23 23:50] VITALS: BP 156/76; O2SAT 95
[2025-04-23 23:51] VITALS: BP 156/76
[2025-04-24] VITALS (17 sets, daily range): BP systolic 90–149; BP diastolic 52–88; O2SAT 99–100
[2025-04-24 03:08] LABS: URINE APPEARANCE Clear; URINE BILIRRUBIN Negative (NEGATIVE); URINE BLOOD Trace; URINE COLOR Yellow; URINE GLUCOSE Negative (NEGATIVE); URINE KETONE Negative (NEGATIVE); URINE LEUKOCYTE Negative; URINE NITRATE Negative; URINE PROTEIN Negative (NEGATIVE); URINE UROBILINOGEN 0.2 E.U./dl
[2025-04-24 03:12] LABS: URINE BACTERIA 149.3 uL (0.0-1933); URINE WBC 3.1 uL (0.0-23.2)
[2025-04-24 03:20] LABS: URINE CAST 0.44 uL (0.0-1.40); URINE RBC 1.1 uL (0.0-20.8)
[2025-04-24] MEDS ORDERED: APIXABAN 5 MG TABLET PO SCH (05:00)
[2025-04-24] MEDS ORDERED: NITROGLYCERIN IN 5 % DEXTROSE 250 ML IV SCH (07:00)
[2025-04-24] MEDS ORDERED: FAMOTIDINE/PF 20 MG in 0.9 % SODIUM CHLORIDE 8 ML IV PUSH SCH (09:00)
[2025-04-24] MEDS ORDERED: ENOXAPARIN SODIUM 40 MG/0.4 ML SYRINGE SUBCUTANEO SCH (09:00)
[2025-04-24 12:03] LABS: ABG PH 7.264 (7.35-7.45); ABG PO2 128.7 mmHg (80-100); BICARBONATE 47.7 mmol/l (23-25); SaO2 98.5 %
[2025-04-24 12:16] LABS: ABG pCO2 107.9 mmHg (35-45); allen test SATISFACTORY; mode BPAP; puncture site RADIAL LEFT
[2025-04-24 12:17] LABS: o2 45 %
[2025-04-24] MEDS ORDERED: PROPOFOL 10,000 MCG/ML VIAL ONE (12:30)
[2025-04-24] MEDS ORDERED: PROPOFOL 10,000 MCG/ML VIAL IV PUSH STA (13:57)
[2025-04-24] MEDS ORDERED: PROPOFOL 100 ML IV SCH (14:00)
[2025-04-24] MEDS ORDERED: MIDAZOLAM HCL 50 MG in 0.9 % SODIUM CHLORIDE 50 ML IV SCH (14:00)
[2025-04-24 14:38] LABS: ABG PH 7.569 (7.35-7.45); ABG PO2 113.3 mmHg (80-100); ABG pCO2 47.4 mmHg (35-45); BASE EXCESS 17.7 mmol/l; BICARBONATE 42.3 mmol/l (23-25); SaO2 99.2 %; Tco2 43.8 mmol/l
[2025-04-24 14:42] LABS: allen test SATISFACTORY; mode MECHANI VENTILATOR; puncture site RADIAL LEFT
[2025-04-24 14:44] LABS: o2 100 %
[2025-04-24] MEDS ORDERED: POLYVINYL ALCOHOL 15 ML DROPS OP SCH (17:00)
[2025-04-24] MEDS ORDERED: CHLORHEXIDINE GLUCONATE 15ML BRUSH KIT MM SCH (17:00)
[2025-04-24 17:10] LABS: ABG PH 7.589 (7.35-7.45); ABG PO2 303.3 mmHg (80-100); ABG pCO2 43.6 mmHg (35-45); BICARBONATE 40.8 mmol/l (23-25); Tco2 42.1 mmol/l
[2025-04-24 17:11] LABS: allen test SATISFACTORY; mode MECHANI VENTILATOR; o2 80 %; puncture site RADIAL RIGHT
[2025-04-24 20:26] LABS: TP PLEURAL FLUID 2.8 g/dl
[2025-04-24 20:31] LABS: MONONUCLEAR 93.7 %; PLEURAL FLUID RBC 0.002 10E6/uL; PLEURAL FLUID WBC 0.615 10E3/uL; POLYMORPHONUCLEAR 6.3 %
[2025-04-24 20:46] LABS: PLEURAL FLUID COLOR YELLOW
[2025-04-24 20:48] LABS: PLEURAL FLUID APPEARANCE HAZY
[2025-04-24] MEDS ORDERED: VANCOMYCIN HCL 5 MG/ML REDILUIDO IV SCH (21:00)
[2025-04-24] MEDS ORDERED: VANCOMYCIN HCL 1,000 MG VIAL IV SCH (21:00)
[2025-04-24] MEDS ORDERED: ENOXAPARIN SODIUM 100 MG/ML SYRINGE SUBCUTANEO SCH (21:00)
[2025-04-25] VITALS (15 sets, daily range): BP systolic 94–140; BP diastolic 51–82; O2SAT 100
[2025-04-25 06:12] LABS: ABG PO2 129.6 mmHg (80-100); ABG pCO2 36.4 mmHg (35-45); BASE EXCESS 16.8 mmol/l; BICARBONATE 38.9 mmol/l (23-25); SaO2 99.6 %
[2025-04-25 06:31] LABS: ABG PH 7.647 (7.35-7.45); o2 50 %
[2025-04-25 06:32] LABS: allen test SATISFACTORY; mode MECHANI VENTILATOR; puncture site RADIAL RIGHT
[2025-04-25 06:44] LABS: BASO % 1.4 % (0.1-1.2); EOS # 0.06 (0.04-0.54); EOS % 0.9 % (0.7-7.0); HEMATOCRIT 35.1 % (40.1-51.0); HEMOGLOBIN 10.8 g/dL (13.7-17.5); LYMPH # 0.96 (1.18-3.74); LYMPH % 14.6 % (19.3-53.1); MEAN CORPUSCULAR HEMOGLOBIN 27.3 pg (25.6-32.2); MONO # 1.15 (0.24-0.82); NEUT # 4.26 (1.56-6.13); NEUT % 64.8 % (34.0-71.1); RED BLOOD COUNT 3.96 M/uL (4.63-6.08); RED CELL DISTRIBUTION WIDTH 15.8 % (11.6-14.4)
[2025-04-25 06:55] LABS: MONO % 17.5 % (4.7-12.5); PLATELET COUNT 101 K/uL (163-369)
[2025-04-25 07:14] LABS: MYCOPLASMA PNEUMONIAE IGM NON REACTIVE (NO REACTIVE)
[2025-04-25 07:29] LABS: ALBUMIN 2.8 gm/dL (3.4-5.0); BILIRUBIN TOTAL 1.97 mg/dL (0.3-1.2); CALCIUM 8.6 mg/dL (8.5-10.1); CREATININE SERUM 1.15 mg/dL (0.70-1.30); GFR 61.66; MAGNESIUM 1.8 mg/dL (1.8-2.4); TOTAL PROTEIN 5.8 gm/dL (6.4-8.2)
[2025-04-25 07:43] LABS: POTASSIUM 2.9 mEq/L (3.5-5.1)
[2025-04-25 07:44] LABS: PHOSPHOROUS 1.6 mg/dL (2.5-4.9)
[2025-04-25] MEDS ORDERED: FUROsemide 40 MG/4 ML VIAL IV SCH (09:00)
[2025-04-25] MEDS ORDERED: MAGNESIUM SULFATE IN WATER 2 GM/50 ML PIGGYBAG IV NR (09:00)
[2025-04-25] MEDS ORDERED: POTASSIUM CHLORIDE IN WATER 40 MEQ/100 ML PIGGYBAG IV SCH (12:00)
[2025-04-25] MEDS ORDERED: FAMOTIDINE/PF 20 MG in 0.9 % SODIUM CHLORIDE 8 ML IV PUSH SCH (17:00)
[2025-04-26] VITALS (10 sets, daily range): BP systolic 102–132; BP diastolic 55–78; O2SAT 98–100
[2025-04-26] MEDS ORDERED: POTASSIUM PHOS,M-BASIC-D-BASIC 3 MM/ML VIAL IV SCH
[2025-04-26] MEDS ORDERED: POTASSIUM CHLORIDE IN WATER 40 MEQ/100 ML PIGGYBAG IV ONE (00:28)
[2025-04-26 05:05] LABS: ABG PO2 135.5 mmHg (80-100); ABG pCO2 32.8 mmHg (35-45); BASE EXCESS 13.4 mmol/l; BICARBONATE 34.7 mmol/l (23-25); SaO2 99.6 %; Tco2 35.7 mmol/l
[2025-04-26 05:16] LABS: ABG PH 7.643 (7.35-7.45); allen test SATISFACTORY; mode MECHANI VENTILATOR; o2 50 %; puncture site RADIAL LEFT
[2025-04-26 08:45] LABS: BASO % 0.5 % (0.1-1.2); EOS # 0.23 (0.04-0.54); EOS % 2.4 % (0.7-7.0); HEMATOCRIT 34.1 % (40.1-51.0); LYMPH # 1.18 (1.18-3.74); LYMPH % 12.1 % (19.3-53.1); MEAN CORPUSCULAR HEMOGLOBIN 27.1 pg (25.6-32.2); MONO # 1.19 (0.24-0.82); NEUT # 7.08 (1.56-6.13); NEUT % 72.4 % (34.0-71.1); PLATELET COUNT 179 K/uL (163-369); RED BLOOD COUNT 4.06 M/uL (4.63-6.08); RED CELL DISTRIBUTION WIDTH 16.5 % (11.6-14.4)
[2025-04-26 08:46] LABS: MONO % 12.2 % (4.7-12.5)
[2025-04-26] MEDS ORDERED: PANTOPRAZOLE SODIUM 40 MG in 0.9 % SODIUM CHLORIDE 8 ML IV PUSH SCH (09:00)
[2025-04-26] MEDS ORDERED: FUROsemide 20 MG/2 ML VIAL IV SCH (09:00)
[2025-04-26 09:25] LABS: ALBUMIN 2.6 gm/dL (3.4-5.0); BILIRUBIN TOTAL 1.97 mg/dL (0.3-1.2); CALCIUM 8.3 mg/dL (8.5-10.1); CREATININE SERUM 1.23 mg/dL (0.70-1.30); GFR 57.06; GLOBULINA 3.2 G/DL (2.4-3.5); PHOSPHOROUS 2.5 mg/dL (2.5-4.9); POTASSIUM 3.44 mEq/L (3.5-5.1); TOTAL PROTEIN 5.8 gm/dL (6.4-8.2)
[2025-04-26] MEDS ORDERED: DEXTROSE 10 % IN WATER 1,000 ML IV SCH (11:00)
[2025-04-27 05:31] VITALS: BP 110/66; O2SAT 98
[2025-04-27 06:29] LABS: ABG PO2 163.9 mmHg (80-100); BASE EXCESS 11.5 mmol/l; BICARBONATE 33.2 mmol/l (23-25); SaO2 99.7 %; Tco2 34.2 mmol/l
[2025-04-27 06:57] LABS: ABG PH 7.612 (7.35-7.45); ABG pCO2 33.6 mmHg (35-45)
[2025-04-27 06:58] LABS: allen test SATISFACTORY; mode MECHANI VENTILATOR; o2 50 %; puncture site RADIAL RIGHT
[2025-04-27 07:27] VITALS: BP 115/62; O2SAT 100
[2025-04-27 08:21] LABS: ABG PH 7.586 (7.35-7.45); ABG PO2 218.6 mmHg (80-100); ABG pCO2 35.4 mmHg (35-45); BASE EXCESS 10.7 mmol/l; BICARBONATE 32.9 mmol/l (23-25); SaO2 99.9 %
[2025-04-27 08:38] LABS: PH,URINE 8.5 (5.0-8.0); URINE APPEARANCE Clear; URINE BILIRRUBIN Negative (NEGATIVE); URINE BLOOD Moderate; URINE COLOR Dark Yellow; URINE GLUCOSE Negative (NEGATIVE); URINE KETONE Trace (NEGATIVE); URINE LEUKOCYTE Trace; URINE NITRATE Negative
[2025-04-27 08:41] LABS: URINE BACTERIA 9.7 uL (0.0-1933); URINE EPITHELIAL CELLS 7.1 uL (0.0-38.8); URINE RBC 45.6 uL (0.0-20.8); URINE WBC 8.5 uL (0.0-23.2)
[2025-04-27] MEDS ORDERED: FUROsemide 20 MG/2 ML VIAL IV STA (09:32)
[2025-04-27 09:44] LABS: URINE CAST 1.32 uL (0.0-1.40); URINE PROTEIN 100 (NEGATIVE)
[2025-04-27 10:10] LABS: BASO % 0.3 % (0.1-1.2); EOS # 0.56 (0.04-0.54); EOS % 4.8 % (0.7-7.0); HEMATOCRIT 32.1 % (40.1-51.0); HEMOGLOBIN 10.4 g/dL (13.7-17.5); LYMPH # 1.06 (1.18-3.74); LYMPH % 9.1 % (19.3-53.1); MEAN CORPUSCULAR HEMOGLOBIN 26.9 pg (25.6-32.2); MONO # 1.05 (0.24-0.82); MONO % 9.1 % (4.7-12.5); NEUT # 8.83 (1.56-6.13); NEUT % 76.3 % (34.0-71.1); RED BLOOD COUNT 3.87 M/uL (4.63-6.08); RED CELL DISTRIBUTION WIDTH 16.7 % (11.6-14.4)
[2025-04-27 10:19] LABS: PLATELET COUNT 83 K/uL (163-369)
[2025-04-27 10:29] LABS: ABG PH 7.406 (7.35-7.45); ABG PO2 101.3 mmHg (80-100); ABG pCO2 59.2 mmHg (35-45); BASE EXCESS 9.2 mmol/l; BICARBONATE 36.3 mmol/l (23-25); Tco2 38.1 mmol/l
[2025-04-27 10:33] LABS: allen test SATISFACTORY; mode BPAP; o2 50 %; puncture site RADIAL RIGHT
[2025-04-27 10:47] LABS: ALBUMIN 2.3 gm/dL (3.4-5.0); BILIRUBIN TOTAL 1.8 mg/dL (0.3-1.2); CALCIUM 7.7 mg/dL (8.5-10.1); CREATININE SERUM 1.16 mg/dL (0.70-1.30); GFR 61.05; PHOSPHOROUS 2.9 mg/dL (2.5-4.9); TOTAL PROTEIN 5.3 gm/dL (6.4-8.2)
[2025-04-27 11:15] LABS: POTASSIUM 2.95 mEq/L (3.5-5.1)
[2025-04-27] MEDS ORDERED: POTASSIUM CHLORIDE IN WATER 40 MEQ/100 ML PIGGYBAG IV SCH (12:00)
[2025-04-27 12:23] VITALS: BP 105/64; O2SAT 98
[2025-04-27 12:31] LABS: allen test SATISFACTORY; mode MECHANI VENTILATOR; o2 50 %; puncture site RADIAL RIGHT
[2025-04-27 15:35] VITALS: BP 111/66; O2SAT 100
[2025-04-27] MEDS ORDERED: FUROsemide 40 MG/4 ML VIAL IV SCH (17:00)
[2025-04-27 20:04] VITALS: BP 101/61; O2SAT 97
[2025-04-27] MEDS ORDERED: POTASSIUM CHLORIDE IN WATER 40 MEQ/100 ML PIGGYBAG IV ONE (21:09)
[2025-04-27 22:15] LABS: ABG PH 7.467 (7.35-7.45); ABG PO2 131.8 mmHg (80-100); ABG pCO2 51.3 mmHg (35-45)
[2025-04-27 22:16] LABS: BASE EXCESS 10.6 mmol/l; BICARBONATE 36.3 mmol/l (23-25); SaO2 99.2 %; Tco2 37.8 mmol/l
[2025-04-27 22:17] LABS: allen test SATISFACTORY; mode BPAP; o2 50 %; puncture site RADIAL LEFT
[2025-04-27 23:12] VITALS: BP 106/63; O2SAT 98
[2025-04-27 23:23] LABS: ABG PO2 131.4 mmHg (80-100); BASE EXCESS 10.9 mmol/l; BICARBONATE 32.4 mmol/l (23-25); SaO2 99.5 %; Tco2 33.5 mmol/l
[2025-04-28 01:47] LABS: ABG PH 7.611 (7.35-7.45); allen test SATISFACTORY; o2 40 %; puncture site RADIAL RIGHT
[2025-04-28 01:48] LABS: mode BPAP
[2025-04-28 04:31] VITALS: BP 107/60; O2SAT 97
[2025-04-28 07:32] VITALS: BP 110/68; O2SAT 97
[2025-04-28 07:55] LABS: ALBUMIN 2.2 gm/dL (3.4-5.0); BILIRUBIN TOTAL 1.68 mg/dL (0.3-1.2); CALCIUM 7.9 mg/dL (8.5-10.1); CREATININE SERUM 1.31 mg/dL (0.70-1.30); GFR 53.06; GLOBULINA 3.3 G/DL (2.4-3.5); POTASSIUM 3.76 mEq/L (3.5-5.1); TOTAL PROTEIN 5.5 gm/dL (6.4-8.2)
[2025-04-28 08:39] LABS: ABG PH 7.533 (7.35-7.45); ABG pCO2 39.8 mmHg (35-45); BASE EXCESS 9.3 mmol/l; BICARBONATE 32.7 mmol/l (23-25); SaO2 98.8 %
[2025-04-28 11:19] LABS: allen test SATISFACTORY; mode BPAP; o2 40 %; puncture site RADIAL RIGHT
[2025-04-28 12:00] VITALS: BP 119/60; O2SAT 99
[2025-04-28 16:08] VITALS: BP 132/73; O2SAT 98
[2025-04-28] MEDS ORDERED: MEROPENEM 500 MG/VIAL VIAL IV SCH (17:00)
[2025-04-28 20:00] VITALS: BP 133/72; O2SAT 100
[2025-04-28] MEDS ORDERED: VANCOMYCIN HCL 1,000 MG VIAL ONE (20:47)
[2025-04-28] MEDS ORDERED: VANCOMYCIN HCL 1,000 MG VIAL IV SCH (21:00)
[2025-04-28] MEDS ORDERED: FUROsemide 20 MG/2 ML VIAL IV SCH (21:00)
[2025-04-28] MEDS ORDERED: FUROsemide 40 MG/4 ML VIAL IV SCH (21:00)
[2025-04-28 23:47] VITALS: BP 114/63; O2SAT 99
[2025-04-29 04:00] VITALS: BP 110/64; O2SAT 99
[2025-04-29 05:17] LABS: ABG PO2 145.6 mmHg (80-100)
[2025-04-29 06:13] LABS: ABG PH 7.503 (7.35-7.45); BASE EXCESS 7.3 mmol/l; SaO2 99.7 %
[2025-04-29 06:14] LABS: BICARBONATE 30.7 mmol/l (23-25); Tco2 10 mmol/l; allen test SATISFACTORY; mode BPAP; o2 40 %; puncture site RADIAL RIGHT
[2025-04-29 06:45] LABS: BASO % 0.3 % (0.1-1.2); EOS # 1.53 (0.04-0.54); EOS % 10.6 % (0.7-7.0); HEMOGLOBIN 10.3 g/dL (13.7-17.5); LYMPH # 0.87 (1.18-3.74); MEAN CORPUSCULAR HEMOGLOBIN 26.9 pg (25.6-32.2); MONO # 1.31 (0.24-0.82); MONO % 9.1 % (4.7-12.5); NEUT # 10.63 (1.56-6.13); NEUT % 73.4 % (34.0-71.1); RED BLOOD COUNT 3.83 M/uL (4.63-6.08)
[2025-04-29 06:52] LABS: PLATELET COUNT 109 K/uL (163-369)
[2025-04-29 07:18] VITALS: BP 115/68; O2SAT 99
[2025-04-29 07:44] LABS: ABG pCO2 68.7 mmHg (35-45)
[2025-04-29 07:56] LABS: CREATININE SERUM 1.34 mg/dL (0.70-1.30); GFR 51.69; MAGNESIUM 2.4 mg/dL (1.8-2.4); PHOSPHOROUS 4.5 mg/dL (2.5-4.9); POTASSIUM 3.7 mEq/L (3.5-5.1)
[2025-04-29 08:01] LABS: C-REACTIVE PROTEIN 29.6 MG/DL (0.00-0.29)
[2025-04-29 12:00] VITALS: BP 116/58; O2SAT 99
[2025-04-29 15:26] VITALS: BP 98/60; O2SAT 95
[2025-04-29] MEDS ORDERED: VANCOMYCIN HCL 1,000 MG VIAL ONE (16:13)
[2025-04-29 20:00] VITALS: BP 67/50; O2SAT 99
[2025-04-29 21:00] VITALS: BP 62/34; O2SAT 100
[2025-04-29] MEDS ORDERED: NOREPINEPHRINE BITARTRATE 1 MG/ML AMPUL IV ONE (21:01)
[2025-04-29] MEDS ORDERED: NOREPINEPHRINE BITARTRATE 8 MG in DEXTROSE 5 % IN WATER 250 ML IV SCH (21:15)
[2025-04-29] MEDS ORDERED: EPINEPHRINE HCL/PF 1 MG/ML AMPUL IV PUSH STA (22:55)
[2025-04-29] MEDS ORDERED: SODIUM BICARBONATE 1 MEQ/ML DISP.SYRIN 50ML IV STA (22:58)
[2025-04-29] MEDS ORDERED: DOPamine HCL 400MG/D5w 250ML PLAST..BAG IV SCH (23:45)
[2025-04-30] MEDS ORDERED: DOPamine HCL IN DEXTROSE 5 % 250 ML IV SCH (07:00)
== END 2025-04-29 22:30 | disposition expired | DRG 208 ==
LOC: ER 18:13 → ICU 21:59 → ICU-2 21:59 → ICU 04-24 02:13 → ICU-2 04-30 04:38
PROVIDERS: General Practice; Internal Medicine Critical Care Medicine; Internal Medicine Infectious Disease; Radiology Vascular & Interventional Radiology; ADMIT Internal Medicine; ATTEND Internal Medicine
PROC: BW24ZZZ Computerized Tomography (CT Scan) of Chest and Abdomen (ICD-10-PCS; 2025-04-23)
PROC: 0W993ZX Drainage of Right Pleural Cavity, Percutaneous Approach, Diagnostic (ICD-10-PCS; 2025-04-24)
PROC: B24BZZZ Ultrasonography of Heart with Aorta (ICD-10-PCS; 2025-04-24)
PROC: 5A1945Z Respiratory Ventilation, 24-96 Consecutive Hours (ICD-10-PCS; principal; 2025-04-25)
PROC: 0BH17EZ Insertion of Endotracheal Airway into Trachea, Via Natural or Artificial Opening (ICD-10-PCS; 2025-04-25)
PROC: 0BP Respiratory System, Removal (ICD-10-PCS; 2025-04-27)
PROC: 0BH17EZ Insertion of Endotracheal Airway into Trachea, Via Natural or Artificial Opening (ICD-10-PCS; 2025-04-29)
DX: J96.02 Acute respiratory failure with hypercapnia (principal); J18.9 Pneumonia, unspecified organism; R65.21 Severe sepsis with septic shock; E87.0 Hyperosmolality and hypernatremia; I46.9 Cardiac arrest, cause unspecified; I48.91 Unspecified atrial fibrillation; E78.5 Hyperlipidemia, unspecified; I25.10 Atherosclerotic heart disease of native coronary artery without angina pectoris; I11.0 Hypertensive heart disease with heart failure; I50.9 Heart failure, unspecified; J44.9 Chronic obstructive pulmonary disease, unspecified; R41.82 Altered mental status, unspecified; I27.20 Pulmonary hypertension, unspecified; E87.6 Hypokalemia